=== PATIENT | female | born 1935 | race Caucasian/White ===

== ENCOUNTER 2016-12-15 12:53 | Inpatient (IN) | payer OTHER, MEDICAID ==
[2016-12-15] MEDS ORDERED: NS 1,000 ML IV ONE ×2 (13:17→14:12)
--- NOTE | 2016-12-15 13:35 | EDPHY ---
H & P Stated Complaint: sent from pcp for sepsis workup, fatigue, weakness,diarrhea unk cause Time Seen by Provider: 12/15/16 13:35 HPI/ROS: CHIEF COMPLAINT: Weakness, fatigue, chronic diarrhea, rash after starting antibiotics HISTORY OF PRESENT ILLNESS: The patient presents to the ED with complaints of increasing weakness and fatigue. The patient does have a history of chronic weakness from a prior stroke 10 years ago. The patient typically has a right- sided deficit from that event. Over the past several days she has had generalized weakness and inability to walk. She is also developed an acute exacerbation of chronic diarrhea. The patient reportedly was seen by her primary care provider who started her on antibiotics several days ago. She has developed a erythematous rash to her lower extremities. The patient denies any fever, cough or congestion. She denies complaints of acute pain. 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 The patient denies any complaints of acute headache, neck pain or acute unilateral numbness or weakness. REVIEW OF SYSTEMS: A comprehensive 10 point review of systems is otherwise negative aside from elements mentioned in the history of present illness. Source: Patient Exam Limitations: No limitations - Personal History Current Tetanus/Diphtheria Vaccine: Unsure Current Tetanus Diphtheria and Acellular Pertussis (TDAP): Unsure Tetanus Vaccine Date: 2004 - Medical/Surgical History Hx Asthma: No Hx Chronic Respiratory Disease: No Hx Diabetes: Yes Hx Cardiac Disease: Yes Hx Renal Disease: No Hx Cirrhosis: No Hx Alcoholism: No Hx HIV/AIDS: No Hx Splenectomy or Spleen Trauma: No Other PMH: CVA, LINOLEUM FLOOR INSTALLER aneurysm. chronic diarrhea. diet controlled type 2 diabetes - Social History Smoking Status: Never smoked - Physical Exam Exam: General Appearance: Alert, no distress Eyes: Pupils equal and round no pallor or injection ENT, Mouth: Dry mucous membranes Respiratory: There are no retractions, lungs are clear to auscultation Cardiovascular: Regular rate and rhythm Gastrointestinal: Abdomen is soft and nontender, no masses, bowel sounds normal Neurological: Weakness noted in the right arm and leg consistent with prior stroke, global weakness noted to all extremities consistent with the patient's dehydration Skin: Fine erythematous rash to bilateral lower extremities likely secondary to drug reaction Extremities: symmetrical, full range of motion Psychiatric: Patient is oriented X 3, there is no agitation Constitutional: Initial Vital Signs Temperature (C) 37.3 C 12/15/16 12:57 Heart Rate 87 12/15/16 12:57 Respiratory Rate 16 12/15/16 12:57 Blood Pressure 106/57 L 12/15/16 12:57 O2 Sat (%) 90 L 12/15/16 12:57 O2 Delivery Mode Room Air Allergies/Adverse Reactions: phenytoin sodium [From Dilantin] Allergy (Intermediate, Verified 01/03/15 13:07) blisters in mouth phenytoin sodium extended [From Dilantin] Allergy (Intermediate, Verified 13:07) blisters in mouth erythromycin base [Erythromycin Base] Allergy (Mild, Verified 01/03/15 13:07) itchy red rash Sulfa (Sulfonamide Antibiotics) Allergy (Mild, Verified 01/03/15 13:07) itchy red rash tetracycline [Tetracycline] Allergy (Mild, Verified 01/03/15 13:07) itchy,red rash Tetracyclines Allergy (Verified 01/03/15 13:07) Home Medications: Medication Instructions Recorded Acetaminophen [Pain Reliever] 650 mg PO Q4 PRN 07/17/12 Aspirin [Aspirin 325 mg (OTC)] 325 mg PO DAILY 07/17/12 C/E/Zn/Cu/OM3/DHA/EPA/LUT/ZEAX 1 each PO HS 07/17/12 [Preservision Areds 2 Softgel] Citalopram Hydrobromide 40 mg PO DAILY 07/17/12 [Citalopram HBr 40 MG] Naproxen [Naproxen 500 mg] 500 mg PO BID PRN 07/17/12 Simvastatin [Zocor 80 mg] 80 mg PO DAILY18 07/17/12 levETIRAcetam [Keppra 250 mg (RX)] 250 mg PO BID 07/17/12 Hydrocodone/APAP 5/325 [Frederic 1 - 2 each PO Q6 PRN #20 tab 03/15/15 5/325] Medical Decision Making ED Course/Re-evaluation: The patient presents to the ED with acute weakness and inability to walk likely secondary to dehydration. The patient has a history of chronic diarrhea but has had an exacerbation of her diarrhea over the past 2 days. She has no fever or abdominal tenderness. The patient is noted to have neurologic findings consistent with her history of prior stroke. The patient presents to the ED with symptoms most consistent with acute dehydration from an exacerbation of chronic diarrhea resulting in a lactic acidosis. Additionally, the patient has evidence of a rash from a likely drug reaction. The patient has no evidence of an obvious bacterial infection. She does not have SIRS criteria. The patient will require admission to the hospital for supportive care. Consultation is made with Dr. Longoria from the hospitalist service who will admit the patient. I have ordered a GI pathogen PCR panel for further evaluation of the patient's acute diarrhea. Patient does not have evidence sepsis, sepsis or septic shock. Differential Diagnosis: Differential diagnosis considered includes dehydration, infectious diarrhea, chronic diarrhea, drug reaction, metabolic abnormality, renal failure - Data Points Laboratory Results: Laboratory Results 12/15/16 13:30 12/15/16 13:30 12/15/16 12/15/16 12/15/16 14:00 13:55 13:30 WBC RBC Hgb Hct MCV MCH MCHC RDW Plt Count MPV Neut % (Auto) Lymph % (Auto) [place] % (Auto) Eos % (Auto) Baso % (Auto) Nucleat RBC Rel Count Absolute Neuts (auto) Absolute Lymphs (auto) Absolute Monos (auto) Absolute Eos (auto) Absolute Basos (auto) Absolute Nucleated RBC Immature Gran % Immature Gran # VBG Lactic Acid 2.9 mmol/L H mmol/L (0.7-2.1) Sodium 135 mEq/L mEq/L (134-144) Potassium 3.2 mEq/L L mEq/L (3.5-5.2) Chloride 99 mEq/L mEq/L (97-110) Carbon Dioxide 23 mEq/l mEq/l (22-31) Anion Gap 13 mEq/L mEq/L (8-16) BUN 14 mg/dL mg/dL (7-23) Creatinine 0.9 mg/dL mg/dL (0.6-1.0) Estimated GFR > 60 Glucose 177 mg/dL H mg/dL (70-100) Calcium 7.8 mg/dL L mg/dL (8.5-10.4) Urine Color YELLOW Urine Appearance HAZY Urine pH 5.0 (5.0-7.5) Ur Specific [place] 1.006 (1.002-1.030) Urine Protein NEGATIVE (NEGATIVE) Urine Ketones NEGATIVE (NEGATIVE) Urine Blood 1+ H (NEGATIVE) Urine Nitrate NEGATIVE (NEGATIVE) Urine Bilirubin NEGATIVE (NEGATIVE) Urine Urobilinogen NEGATIVE EU EU (0.2-1.0) Ur Leukocyte Esterase TRACE H (NEGATIVE) Urine RBC 3-5 /hpf H /hpf (0-3) Urine WBC 3-5 /hpf H /hpf (0-3) Ur Epithelial Cells TRACE /lpf /lpf (NONE-1+) Urine Bacteria TRACE /hpf H /hpf (NONE SEEN) Urine Mucus TRACE /lpf /lpf (NONE-1+) Urine Glucose NEGATIVE (NEGATIVE) 12/15/16 12/15/16 13:30 13:30 WBC 8.06 10^3/uL 10^3/uL (3.80-9.50) RBC 3.95 10^6/uL L 10^6/uL (4.18-5.33) Hgb 13.0 g/dL g/dL (12.6-16.3) Hct 38.8 % % (38.0-47.0) MCV 98.2 fL fL (81.5-99.8) MCH 32.9 pg pg (27.9-34.1) MCHC 33.5 g/dL g/dL (32.4-36.7) RDW 13.2 % % (11.5-15.2) Plt Count 143 10^3/uL L 10^3/uL (150-400) MPV 11.1 fL fL (8.7-11.7) Neut % (Auto) 88.2 % H % (39.3-74.2) Lymph % (Auto) 5.0 % L % (15.0-45.0) [place] % (Auto) 4.2 % L % (4.5-13.0) Eos % (Auto) 2.1 % % (0.6-7.6) Baso % (Auto) 0.0 % L % (0.3-1.7) Nucleat RBC Rel Count 0.0 % % (0.0-0.2) Absolute Neuts (auto) 7.11 10^3/uL H 10^3/uL (1.70-6.50) Absolute Lymphs (auto) 0.40 10^3/uL L 10^3/uL (1.00-3.00) Absolute Monos (auto) 0.34 10^3/uL 10^3/uL (0.30-0.80) Absolute Eos (auto) 0.17 10^3/uL 10^3/uL (0.03-0.40) Absolute Basos (auto) 0.00 10^3/uL L 10^3/uL (0.02-0.10) Absolute Nucleated RBC 0.00 10^3/uL 10^3/uL (0-0.01) Immature Gran % 0.5 % % (0.0-1.1) Immature Gran # 0.04 10^3/uL 10^3/uL (0.00-0.10) VBG Lactic Acid 3.1 mmol/L H mmol/L (0.7-2.1) Sodium Potassium Chloride Carbon Dioxide Anion Gap BUN Creatinine Estimated GFR Glucose Calcium Urine Color Urine Appearance Urine pH Ur Specific [place] Urine Protein Urine Ketones Urine Blood Urine Nitrate Urine Bilirubin Urine Urobilinogen Ur Leukocyte Esterase Urine RBC Urine WBC Ur Epithelial Cells Urine Bacteria Urine Mucus Urine Glucose Medications Given: Discontinued Medications Sodium Chloride (Ns) 1,000 mls @ 0 mls/hr IV ONCE ONE; Wide Open PRN Reason: Protocol Stop: 12/15/16 13:18 Last Admin: 12/15/16 13:37 Dose: 1,000 mls Sodium Chloride (Ns) 1,000 mls @ 0 mls/hr IV ONCE ONE; Wide Open PRN Reason: Protocol Stop: 12/15/16 14:13 Last Admin: 12/15/16 14:19 Dose: 1,000 mls Departure - Departure Disposition: [facility] Inpatient Acute Clinical Impression: Diarrhea, Dehydration, Lactic acidosis, Ischemic stroke, Drug reaction Condition: Fair Referrals: Yamil Marsh MD [Primary Care Provider] - As per Instructions
[2016-12-15 13:42] LABS: % IMMATURE GRANULYOCYTES 0.5 % (0.0-1.1); ABSOLUTE IMMATURE GRANULOCYTES 0.04 10^3/uL (0.00-0.10); ADD DIFF? NO; ADD MORPH? NO; ADD SCAN? NO; ATYPICAL LYMPHOCYTE FLAG 0 (0-99); FRAGMENT RBC FLAG 0 (0-99); HEMATOCRIT 38.8 % (38.0-47.0); LEFT SHIFT FLG 0 (0-99); LIPEMIA HEMOLYSIS FLAG 80 (0-99); MEAN CELL HEMOGLOBIN 32.9 pg (27.9-34.1); MEAN CELL HEMOGLOBIN CONCENTR. 33.5 g/dL (32.4-36.7); MEAN CELL VOLUME 98.2 fL (81.5-99.8); MEAN PLATELET VOLUME 11.1 fL (8.7-11.7); PLATELET CLUMPS FLAG 10 (0-99); PLATELET COUNT 143 10^3/uL (150-400); RED BLOOD CELL COUNT 3.95 10^6/uL (4.18-5.33); RED CELL DISTRIBUTION WIDTH 13.2 % (11.5-15.2)
[2016-12-15 14:06] LABS: ANION GAP 13 mEq/L (8-16); CALCIUM 7.8 mg/dL (8.5-10.4); CARBON DIOXIDE 23 mEq/l (22-31); CHLORIDE 99 mEq/L (97-110); CREATININE 0.9 mg/dL (0.6-1.0); GLOMERULAR FILTRATION RATE > 60; GLUCOSE 177 mg/dL (70-100); POTASSIUM 3.2 mEq/L (3.5-5.2); SODIUM 135 mEq/L (134-144)
[2016-12-15 14:31] LABS: COLOR YELLOW; LEUKOCYTE ESTERASE,URINE TRACE (NEGATIVE); NITRITE,URINE NEGATIVE (NEGATIVE)
[2016-12-15 14:34] LABS: BACTERIA TRACE /hpf (NONE SEEN); MUCUS TRACE /lpf (NONE-1+)
[2016-12-15] MEDS ORDERED: ONDANSETRON DISINTEGRATING 4 MG TAB PO PRN (14:53)
[2016-12-15] MEDS ORDERED: ONDANSETRON 4 MG/2 ML VIAL IVP PRN (14:53)
[2016-12-15] MEDS ORDERED: diphenhydrAMINE 25 MG CAP PO ONE (15:01)
[2016-12-15] MEDS ORDERED: ONDANSETRON 4 MG/2 ML VIAL IVP ONE (15:40)
[2016-12-15 15:59] LABS: ALBUMIN 3.3 g/dL (3.5-5.0); BILIRUBIN,TOTAL 0.7 mg/dL (0.1-1.4); BILIRUBIN-CONJUGATED 0.2 mg/dL (0.0-0.5); BILIRUBIN-UNCONJUGATED 0.5 mg/dL (0.0-1.1); TOTAL PROTEIN 5.9 g/dL (6.3-8.2)
[2016-12-15] MEDS ORDERED: diphenhydrAMINE 25 MG CAP PO PRN (16:56)
--- NOTE | 2016-12-15 17:07 | GHP ---
[f rep st] HISTORY AND PHYSICAL DATE OF ADMISSION: 12/15/2016 CHIEF COMPLAINT: Diarrhea, weakness. HISTORY OF PRESENT ILLNESS: The patient is a 81-year-old female with history of CVA, aneurysm, status post coil, and chronic diarrhea, presenting with 2 weeks of diarrhea. The patient is followed closely by GI of the [facility] with unknown etiology of chronic diarrhea. Per daughter, patient had recent scope that was negative. There are not records in [facility] or [facility] regarding that. The patient then saw her PCP recently because of the diarrhea and was placed on Cipro and possibly Flagyl for the past 2 days. She developed a rash over her legs yesterday. The patient was more confused yesterday as well. She also became dizzy with walking. She uses a walker at baseline. The patient denies fevers but endorses chills. Has not used any antibiotics recently. REVIEW OF SYSTEMS: I completed a 10-point review of systems, negative except as noted in HPI. PAST MEDICAL HISTORY: 1. History of CVA. 2. History of aneurysm, status post coil. 3. Chronic diarrhea. 4. Tendonitis, chronic. 5. Hard of hearing. PAST SURGICAL HISTORY: Aneurysm coiling, left cataract surgery. FAMILY HISTORY: Mother with uterine cancer. Sister with throat cancer. SOCIAL HISTORY: Lives in [facility] in [place]. No alcohol, tobacco, or illicits. ALLERGIES: 1. Dilantin. 2. Erythromycin. 3. Sulfa. 4. Tetracyclines. HOME MEDICATIONS: 1. Vitamin B12 1000 mcg daily. 2. Calcium carbonate/vitamin D. 3. Keppra 250 mg b.i.d. 4. Zocor 80 mg daily. 5. Naproxen as needed. 6. Citalopram 40 daily. 7. Aspirin 325 daily. PHYSICAL EXAMINATION: VITAL SIGNS: Temperature 37.3, blood pressure 108/66, heart rate in the 80s, 93% on room air. GENERAL: Patient is in bed , thin, uncomfortable, mildly diaphoretic, actually dry heaving. HEENT: PERRLA. EOMI. Dry mucous membranes. Oropharynx is clear. There is no ulceration or lesions. CARDIOVASCULAR: Regular rate and rhythm. No murmurs, gallops, or rubs. LUNGS: Clear to auscultation bilaterally. ABDOMEN: Soft, nontender, nondistended. Hyperactive bowel sounds. GENITOURINARY: No suprapubic or CVA tenderness. MUSCULOSKELETAL: Decreased strength in the right side. NEUROLOGIC: 2 through 12 intact. PSYCHIATRIC: Alert and oriented x3. LABORATORY DATA: WBC is 8, hemoglobin is 13, hematocrit is 38, platelets are 143. Lactic acid is 3.1. Sodium 135, potassium 3.2, chloride 99, carbon dioxide 23, BUN 14, creatinine 0.9, glucose 177, calcium 7.8. UA is 3 to 5 whites, traced bacteria. ASSESSMENT AND PLAN: 1. Acute on chronic diarrhea: This is a chronic issue for patient. Followed by GI of the [facility]. Cannot obtain their records, but per daughter has had several scopes that were unremarkable. Patient was recently started on empiric antibiotics by her PCP, but developed a rash. I will discontinue the antibiotics and check a GI panel to ensure no Clostridium difficile or other infection. No Imodium until negative Clostridium difficile. 2. Hypokalemia secondary to poor p.o. intake and diarrhea. Repleting and will check a magnesium. 3. Weakness: Suspect due to possible acute illness and excessive diarrhea. Will rule out other infectious etiologies by checking a UA, respiratory viral panel, and a GI panel. We will hydrate with IV fluids. Supportive care. PT, OT eval. 4. History of a cerebrovascular accident. Continue statin, aspirin, and prophylactic Keppra. 5. Tachycardia secondary to dehydration. Repleting with IV fluids. 6. Nausea suspect secondary to acute gastroenteritis versus other illness. P.r.n. antiemetics. 7. Diet: Regular. 8. Deep venous thrombosis prophylaxis. Lovenox. DISPOSITION: Patient warrants inpatient admission given acute diarrheal infection with dehydration, requiring IV fluids and electrolyte replacement. /[id number]/MODL MTDD
[2016-12-15] MEDS: POTASSIUM Cl (KCl) 100 ML IV SCH ×3 (17:48→21:52)
[2016-12-15] MEDS: NS 1,000 ML IV SCH (17:48)
[2016-12-15] MEDS: levETIRAcetam 250 MG TAB PO SCH (20:08)
[2016-12-15] MEDS: PRESERVISION AREDS2 FORMULA EYE VIT 1 EACH PO SCH (20:09)
[2016-12-15] MEDS: ATORVASTATIN CALCIUM 40 MG TAB PO SCH (20:09)
[2016-12-15] MEDS: ACETAMINOPHEN 325 MG TAB PO PRN (23:52)
[2016-12-16] MEDS: NS 1,000 ML IV SCH (04:39)
[2016-12-16 05:22] LABS: ANION GAP 9 mEq/L (8-16); CALCIUM 6.7 mg/dL (8.5-10.4); CARBON DIOXIDE 18 mEq/l (22-31); CHLORIDE 109 mEq/L (97-110); CREATININE 0.7 mg/dL (0.6-1.0); GLOMERULAR FILTRATION RATE > 60; GLUCOSE 106 mg/dL (70-100); POTASSIUM 4.4 mEq/L (3.5-5.2); SODIUM 136 mEq/L (134-144); SPECIMEN HEMOLYSIS 165
[2016-12-16] MEDS ORDERED: POTASSIUM CL 20 MEQ/15 ML UDCUP PO SCH (09:00)
[2016-12-16] MEDS: CITALOPRAM 20 MG TAB PO SCH (10:14)
[2016-12-16] MEDS: ENOXAPARIN 40 MG/0.4 ML SYR SC SCH (10:14)
[2016-12-16] MEDS: levETIRAcetam 250 MG TAB PO SCH ×2 (10:14→20:19)
[2016-12-16] MEDS: CALCIUM CARB W/VIT D 500 MG TAB PO SCH (10:14)
[2016-12-16] MEDS: ASPIRIN 325 MG TAB PO SCH (10:14)
[2016-12-16] MEDS: CYANO/VITAMIN B12 1000 MCG TAB PO SCH (10:14)
[2016-12-16] MEDS ORDERED: NS 500 ML IV ONE (12:22)
--- NOTE | 2016-12-16 12:26 | HOSPPROG ---
Hospitalist Progress Note Assessment/Plan: #Weakness: suspect due to GI illness. Resp PCR negative. GI panel pending. Few whites on UA, but asymptomatic. Culture pending -CTH negative for acute CVA -PT/OT #Lactic acidosis: due to dehydration. Resolved with IVFs #Hypocalcemia: check stat iCa, replete PRN #h/o CVA: concern for slurred speech last night. Exam and CTH negative for new stroke. Cont ASA,statin #Chronic diarrhea: followed closely by GI outpatient. Will give Immodium if GI panel negative for C diff #Hypotension: due to GI losses. Bolus NS. Afebrile. No CP. #Tachycardia: resolved with IVFs #Hypokalemia: repleted #Diet: regular #DVT ppx: Lovenox #Disp: inpt admission with hypotension, electrolyte repletion, IVFs Subjective: large BM this morning. "feel stronger today" Objective: Vital Signs Temp Pulse Resp BP Pulse Ox 36.8 C 70 16 80/44 L 96 12/16/16 11:18 12/16/16 11:18 12/16/16 11:18 12/16/16 11:18 12/16/16 11:18 Microbiology 12/15/16 17:00 Respiratory Panel (PCR) - Final Nasal, Sinus - Swab No Organism Detected Laboratory Results 12/16/16 04:58 12/15/16 12/16/16 12/17/16 05:59 05:59 05:59 Intake Total 2150 Output Total 450 Balance 1700 - Physical Exam Constitutional: no apparent distress, other (more energy today) Eyes: PERRL Ears, Nose, Mouth, Throat: moist mucous membranes Cardiovascular: regular rate and rhythym Respiratory: no respiratory distress, no rales or rhonchi Gastrointestinal: normoactive bowel sounds, soft, non-tender abdomen, tenderness , other (large amount of brown stool in diaper) Genitourinary: no bladder fullness Skin: warm Musculoskeletal: other (right-sided weakness UE>LE (chronic per patient)) Neurologic: AAOx3, CN II-XII Intact Psychiatric: interacting appropriately, other (answering questions more easily, more conversant) ICD10 Worksheet Patient Problems: Problems Problem Status Onset Dehydration Acute Diarrhea Acute Drug reaction Acute Ischemic stroke Acute Lactic acidosis Acute Diabetes mellitus type 2 Active Intracranial aneurysm Active Ischemic stroke Active
[2016-12-16 12:54] LABS: IONIZED CALCIUM 0.94 MMOL/L (1.12-1.30)
[2016-12-16] MEDS ORDERED: CALCIUM GLUCONATE 50 ML IV ONE (13:17)
[2016-12-16] MEDS ORDERED: LOPERAMIDE HCL 2 MG CAP PO PRN (14:37)
[2016-12-16] MEDS: PRESERVISION AREDS2 FORMULA EYE VIT 1 EACH PO SCH (20:19)
[2016-12-16] MEDS: ACETAMINOPHEN 325 MG TAB PO PRN (20:19)
[2016-12-16] MEDS: ATORVASTATIN CALCIUM 40 MG TAB PO SCH (20:19)
[2016-12-17 06:02] LABS: ANION GAP 4 mEq/L (8-16); CALCIUM 7.1 mg/dL (8.5-10.4); CARBON DIOXIDE 25 mEq/l (22-31); CHLORIDE 109 mEq/L (97-110); CREATININE 0.7 mg/dL (0.6-1.0); GLOMERULAR FILTRATION RATE > 60; GLUCOSE 83 mg/dL (70-100); POTASSIUM 3.4 mEq/L (3.5-5.2); SODIUM 138 mEq/L (134-144)
[2016-12-17] MEDS: CITALOPRAM 20 MG TAB PO SCH (08:31)
[2016-12-17] MEDS: ASPIRIN 325 MG TAB PO SCH (08:32)
[2016-12-17] MEDS: levETIRAcetam 250 MG TAB PO SCH ×2 (08:32→20:11)
[2016-12-17] MEDS: CALCIUM CARB W/VIT D 500 MG TAB PO SCH (08:32)
[2016-12-17] MEDS: CYANO/VITAMIN B12 1000 MCG TAB PO SCH (08:32)
[2016-12-17] MEDS: ENOXAPARIN 40 MG/0.4 ML SYR SC SCH (08:33)
[2016-12-17] MEDS ORDERED: CALCIUM GLUCONATE 50 ML IV ONE (09:06)
[2016-12-17] MEDS ORDERED: POTASSIUM CL 20 MEQ/15 ML UDCUP PO ONE (09:06)
--- NOTE | 2016-12-17 09:08 | HOSPPROG ---
Hospitalist Progress Note Assessment/Plan: #Weakness: improved with hydration. Negative Resp PCR, GI PCR and CXR. Few whites on UA, but negative culture.-CTH negative for acute CVA -PT/OT. Family present, but not available 31/01. Recommend SNF placement with concern for falls and risk of subsequent injury. #Lactic acidosis: due to dehydration. Resolved with IVFs #Hypocalcemia: replete PRN #h/o CVA: Exam and CTH negative for new stroke. Cont ASA,statin #Chronic diarrhea: followed closely by GI outpatient. Will give Immodium if GI panel negative for C diff #Hypotension: due to GI losses. Bolus NS. Afebrile. No CP. #Tachycardia: resolved with IVFs #BL leg rash: asymptomatic. Suspect due to Flagyl. No mucosal involvement. Cipro /Flagyl added to allergy list. Platelets okay #Hypokalemia: repleted #Diet: regular #DVT ppx: Lovenox #Disp: inpt admission with hypotension, electrolyte repletion, IVFs Subjective: no belly pain, still weak Objective: Vital Signs Temp Pulse Resp BP Pulse Ox 36.7 C 59 L 16 93/48 L 93 12/17/16 07:44 12/17/16 07:44 12/17/16 07:44 12/17/16 07:44 12/17/16 07:44 Microbiology 12/16/16 10:00 Gastrointestinal Tract Panel (PCR) - Final Stool No Organism Detected Laboratory Results 12/17/16 04:47 12/16/16 12/17/16 12/18/16 05:59 05:59 05:59 Intake Total 2150 1025 Output Total 450 250 Balance 1700 775 - Physical Exam Constitutional: no apparent distress Ears, Nose, Mouth, Throat: moist mucous membranes, no oral mucosal ulcers Cardiovascular: regular rate and rhythym Respiratory: no respiratory distress Gastrointestinal: normoactive bowel sounds Genitourinary: no bladder fullness Skin: warm, rash (small petechial rash on legs to knees. ) Musculoskeletal: generalized weakness Neurologic: AAOx3 Psychiatric: interacting appropriately Lymph, Heme, Immunologic: no cervical LAD ICD10 Worksheet Patient Problems: Problems Problem Status Onset Dehydration Acute Diarrhea Acute Drug reaction Acute Ischemic stroke Acute Lactic acidosis Acute Diabetes mellitus type 2 Active Intracranial aneurysm Active Ischemic stroke Active
[2016-12-17] MEDS: PRESERVISION AREDS2 FORMULA EYE VIT 1 EACH PO SCH (20:11)
[2016-12-17] MEDS: ACETAMINOPHEN 325 MG TAB PO PRN (20:11)
[2016-12-17] MEDS: ATORVASTATIN CALCIUM 40 MG TAB PO SCH (20:11)
[2016-12-18 05:25] LABS: HEMATOCRIT 34.6 % (38.0-47.0); HEMOGLOBIN 11.4 g/dL (12.6-16.3); MEAN CELL HEMOGLOBIN 32.3 pg (27.9-34.1); MEAN CELL HEMOGLOBIN CONCENTR. 32.9 g/dL (32.4-36.7); RED BLOOD CELL COUNT 3.53 10^6/uL (4.18-5.33); RED CELL DISTRIBUTION WIDTH 13.6 % (11.5-15.2)
[2016-12-18 06:08] LABS: ANION GAP 5 mEq/L (8-16); CALCIUM 7.4 mg/dL (8.5-10.4); CARBON DIOXIDE 27 mEq/l (22-31); CHLORIDE 108 mEq/L (97-110); CREATININE 0.7 mg/dL (0.6-1.0); GLOMERULAR FILTRATION RATE > 60; GLUCOSE 92 mg/dL (70-100); SODIUM 140 mEq/L (134-144)
[2016-12-18 07:37] VITALS: PULSE 64
[2016-12-18] MEDS: ASPIRIN 325 MG TAB PO SCH (07:43)
[2016-12-18] MEDS: CYANO/VITAMIN B12 1000 MCG TAB PO SCH (07:44)
[2016-12-18] MEDS: CITALOPRAM 20 MG TAB PO SCH (07:44)
[2016-12-18] MEDS: CALCIUM CARB W/VIT D 500 MG TAB PO SCH (07:44)
[2016-12-18] MEDS: ENOXAPARIN 40 MG/0.4 ML SYR SC SCH (07:45)
[2016-12-18] MEDS: levETIRAcetam 250 MG TAB PO SCH (07:47)
--- NOTE | 2016-12-18 09:13 | HOSPPROG ---
Hospitalist Progress Note Assessment/Plan: #Weakness: improved with hydration. Negative Resp PCR, GI PCR and CXR. Few whites on UA, but negative culture.-CTH negative for acute CVA -PT/OT. Family present, but not available 31/01. Recommend SNF placement with concern for falls and risk of subsequent injury. #Lactic acidosis: due to dehydration. Resolved with IVFs #Hypocalcemia: replete PRN #Fever: resolved. May be due to mild toe cellulitis. Negative blood cx. Treat with Keflex x 7 days, podiatry outpatient #h/o CVA: Exam and CTH negative for new stroke. Cont ASA,statin #Chronic diarrhea: followed closely by GI outpatient. Will give Immodium if GI panel negative for C diff #Hypotension: due to GI losses. Bolus NS. Afebrile. No CP. #Tachycardia: resolved with IVFs #BL leg rash: asymptomatic. Suspect due to Flagyl. No mucosal involvement. Cipro /Flagyl added to allergy list. Platelets okay #Hypokalemia: repleted #Diet: regular #DVT ppx: Lovenox #Disp:DC today. FU podiatry Subjective: c/o pain in right great toe Objective: Vital Signs Temp Pulse Resp BP Pulse Ox 36.8 C 64 12 101/51 L 93 12/18/16 07:37 12/18/16 07:37 12/18/16 07:37 12/18/16 07:37 12/18/16 07:37 Laboratory Results 12/18/16 05:02 12/18/16 05:02 12/17/16 12/18/16 12/19/16 05:59 05:59 05:59 Intake Total 1025 Output Total 250 Balance 775 - Physical Exam Constitutional: no apparent distress, other (brighter today) Eyes: PERRL Ears, Nose, Mouth, Throat: moist mucous membranes, hearing normal Cardiovascular: regular rate and rhythym, no murmur, rub, or gallop Respiratory: no respiratory distress, no rales or rhonchi Gastrointestinal: normoactive bowel sounds, soft, non-tender abdomen Genitourinary: no bladder fullness Skin: warm Musculoskeletal: other (right great toe with mild swelling and red. Not warm. Min TTP. Mild bruise under nail.) ICD10 Worksheet Patient Problems: Problems Problem Status Onset Dehydration Acute Diarrhea Acute Drug reaction Acute Ischemic stroke Acute Lactic acidosis Acute Diabetes mellitus type 2 Active Intracranial aneurysm Active Ischemic stroke Active
--- NOTE | 2016-12-18 09:50 | PDIAF ---
- Diagnosis Diagnosis: fever, weakness, toe cellulitis Code Status: Full Code - Medication Management Discharge Medications: Medications to Continue on Transfer Aspirin [Aspirin 325 mg (*)] 325 mg PO DAILY 07/17/12 [Last Taken 12/15/16] C/E/Zn/Cu/OM3/DHA/EPA/LUT/ZEAX [Preservision Areds 2 Softgel] 1 each PO HS 07/17 [Last Taken 12/14/16] Citalopram Hydrobromide [Citalopram HBr 40 MG] 40 mg PO DAILY 07/17/12 [Last Taken 12/15/16] Simvastatin [Zocor] 80 mg PO HS 07/17/12 [Last Taken 12/14/16] levETIRAcetam [Keppra 250 mg (*)] 250 mg PO BID 07/17/12 [Last Taken 12/15/16] Calcium Carbonate/Vitamin D3 [CALCIUM 600 + VIT D TABLET] 1 each PO DAILY [Last Taken 12/15/16] Cyanocobalamin [Vitamin B12 (*)] 1,000 mcg PO DAILY 12/15/16 [Last Taken ] Acetaminophen [Tylenol 325mg (*)] 650 mg PO Q4HRS PRN #0 tab 12/18/16 [Last Taken Unknown] Cephalexin [Keflex (*)] 500 mg PO Q6H #28 cap 12/18/16 [Last Taken Unknown] Loperamide HCl [Imodium 2 mg (*)] 2 mg PO QID PRN #0 cap 12/18/16 [Last Taken Unknown] Ondansetron Odt [Zofran Odt 4 mg (*)] 4 mg PO Q4HRS PRN #0 tab 12/18/16 [Last Taken Unknown] Discharge Medications: Refer to the Discharge Home Medication list for PRN reason. - Orders Services needed: Registered Nurse, Certified Combining Machine Operator, Physical Therapy, Occupational Therapy Diet Recommendation: no restrictions on diet Diet Texture: Regular Texture Diet - Follow Up Care Current Providers and Referrals: Yamil Marsh MD [Primary Care Provider] - As per Instructions David Ferguson MD [Doctor of Podiatric Medicine] - follow up in 1 week ( evaluate right great toe)
--- NOTE | 2016-12-18 10:07 | GDS ---
[f rep st] DISCHARGE SUMMARY DISCHARGE DIAGNOSES: 1. Weakness. 2. Acute on chronic diarrhea. 3. Lactic acidosis. 4. Hypocalcemia. 5. History cerebrovascular accident. 6. Hypotension. 7. Tachycardia. 8. Bilateral leg rash, suspected antibiotic reaction. 9. Hypokalemia. 10. Fever. 11. Right great toe cellulitis HISTORY OF PRESENT ILLNESS: Patient is a 81-year-old female with history of chronic diarrhea, followed by GI, history of CVA, aneurysm, status post coil, presenting with 2 weeks of diarrhea. She says that it comes in bouts, that she will not have any, and then will have excessive. She does not really know the triggers, but suspect many foods with skin and peel are culprit. Per daughter, she had a recent endoscopy that was negative. Patient saw her PCP recently because of the diarrhea and was started on Cipro and Flagyl. She developed a rash just over her legs the day prior. She was also more confused at time of admission. She uses a walker at baseline. She also reports having part of an ingrown toenail removed by her PCP recently. Denies any fevers, but endorses chills. HOSPITAL COURSE BY PROBLEM: 1. Acute on chronic diarrhea: This is a chronic issue for patient. She is followed by GI of the [facility]. GI panel was negative here. Symptoms have much improved here with Imodium. 2. Hypokalemia, secondary to diarrhea and poor p.o. intake. This was repleted. 3. Weakness, multifactorial given dehydration, excessive diarrhea and cellulitis of right big toe. Patient has worked with PT, with much improvement and will be discharged to [facility] [employer]. 4. History of CVA: There was concern of garbled speech, which was new. CT head was negative. Suspect this was due to dehydration. 5. Tachycardia on admission. This was secondary to dehydration and fever, this is resolved. 6. Fever: On admission there was no acute etiology, as GI, viral, respiratory , PCR, UA and x-ray were all negative for infection. Patient had just revealed right great toe that was recently trimmed by her PCP for an ingrown nail. It has some mild erythema. Minimal tenderness. We will start Keflex, as patient has many allergies to meds, such as doxycycline and Bactrim. I would recommend a followup with qa software test engineer. Blood cultures have remained negative here, and she has been afebrile for greater than 48 hours. 7. Leg rash: suspect due to Flagyl. No mucosal environment. Cipro/Flagyl added to allergy rash DISPOSITION: Patient is stable for discharge. NEW MEDICATIONS: Keflex for 7 days. FOLLOW UP: 1. PCP. 2. End Stapler. Monitor right great big toe for infection. /[id number]/MODL MTDD
[2016-12-18 12:04] VITALS: BP 92/48; RESP 14; TEMP 98.6; O2SAT 91
== END 2016-12-18 14:41 | DRG 392 ==
LOC: OBSVTOIN 15:55 → F3E 15:57
PROVIDERS: ADMIT Internal Medicine; ATTEND Internal Medicine
DX: K52.9 Noninfective gastroenteritis and colitis, unspecified (principal); E86.0 Dehydration; E87.2 Acidosis; E83.51 Hypocalcemia; L03.031 Cellulitis of right toe; I69.351 Hemiplegia and hemiparesis following cerebral infarction affecting right dominant side; I95.9 Hypotension, unspecified; R00.0 Tachycardia, unspecified; L27.0 Generalized skin eruption due to drugs and medicaments taken internally; T37.3X5A Adverse effect of other antiprotozoal drugs, initial encounter; R50.9 Fever, unspecified; E87.6 Hypokalemia; E11.9 Type 2 diabetes mellitus without complications
CPT/HCPCS: 92526-GN; 92610-GN; 97110-GP; 97116-GP; 97162-GP; 97166-GO; 97535-GO; G8978-GP-CJ; G8979-GP-CI; G8987-GO-CK; G8988-GO-CI; G8996-GN-CH; G8997-GN-CH; G8998-GN-CH; J0610; J0696; J1650; J2405

== ENCOUNTER → 2018-01-18 | Outpatient (CLI) | payer OTHER, MEDICAID | PROVIDERS: ATTEND Physician Assistant | DX: I69.991 Dysphagia following unspecified cerebrovascular disease (principal); R13.10 Dysphagia, unspecified | CPT/HCPCS: 74230; 92611; G8996; G8997; G8998 ==

== ENCOUNTER → 2018-02-22 | Outpatient (CLI) | payer OTHER, MEDICAID | DX: R13.14 Dysphagia, pharyngoesophageal phase (principal); K21.9 Gastro-esophageal reflux disease without esophagitis; K44.9 Diaphragmatic hernia without obstruction or gangrene ==